=== PATIENT | female | born 1970 | race Caucasian/White ===

== ENCOUNTER → 2016-05-19 | Outpatient (CLI) | payer BC ==
[2010-08-09 12:55] VITALS: BP 134/87
== END ==
LOC: MOB LAB 16:51
PROVIDERS: ATTEND Physician Assistant Medical
DX: N39.0 Urinary tract infection, site not specified (principal)
CPT/HCPCS: 87077; 87088; 87186

== ENCOUNTER → 2016-11-16 | Outpatient (CLI) | payer BC ==
[2010-08-09 12:55] VITALS: BP 134/87
[2016-11-16 17:19] LABS: BASOPHILS # (AUTO) 0.13 10*3/UL; BASOPHILS % (AUTO) 1.8 % (0-1); EOSINOPHILS % (AUTO) 1.4 % (0-8); HEMATOCRIT 45.9 % (37.0-47.0); HEMOGLOBIN 15.2 g/dL (12.0-16.0); LYMPHOCYTES # (AUTO) 1.98 10*3/uL; MEAN CORPUSCULAR HEMOGLOBIN 29.8 PG (27-31); MEAN CORPUSCULAR HGB CONC 33.1 g/dL (33-37); MEAN CORPUSCULAR VOLUME 90 FL (81-99); MEAN PLATELET VOLUME 9.3 FL (7.4-12.2); MONOCYTES # (AUTO) 0.51 10*3/UL (0.3-0.8); NEUTROPHILS # (AUTO) 4.51 10*3/UL; NEUTROPHILS % (AUTO) 62.4 % (50-80)
[2016-11-16 17:20] LABS: PLATELET MORPHOLOGY COMMENT NORMAL MORPHOLOGY (NORM); RBC MORPHOLOGY COMMENT NORMAL MORPHOLOGY (NORM); WBC MORPHOLOGY COMMENT NORMAL MORPHOLOGY (NORM)
[2016-11-16 17:37] LABS: BLOOD UREA NITROGEN 8 mg/dL (7-22); BUN/CREATININE RATIO 11.42 (6-20); CALCIUM 9.2 mg/dL (8.7-10.7); EST GLOMERULAR FILTRATION > 60 (>60 ml/min/1.73m(2)); SERUM ALBUMIN 4.2 g/dL (3.5-4.8)
[2016-11-16 17:54] LABS: ERYTHROCYTE SEDIMENTATION RATE 5 MM/HR (0-20)
== END ==
LOC: LAB 16:40
PROVIDERS: ATTEND Specialist
DX: R51 Headache (principal)
CPT/HCPCS: 36415; 80053; 84443; 85025; 85652; 86038